=== PATIENT | female | born 1950 | race Hispanic/Latino ===

== ENCOUNTER 2017-01-16 10:48 | Emergency (ER) | payer MEDICAID, OTHER ==
[2017-01-16 10:59] VITALS: BMI 26.0
[2017-01-16 11:17] VITALS: BP 128/76; PULSE 72; RESP 18; TEMP 98.4; O2SAT 97
[2017-01-16] MEDS ORDERED: Oxycodone/Acetaminophen 5/325 mg Tab PO STA (12:06)
--- NOTE | 2017-01-16 12:08 | ED PDOC ---
Upper Extremity Pain/Injury Time Seen by Provider: 01/16/17 11:08 Chief Complaint (Nursing): Finger,Hand,&Wrist Chief Complaint (Provider): Hand Pain History Per: Patient Additional Complaint(s): 66 yo female, no PMH, presents to Ed with complaints of pain and limited ROM to rt thumb x 3 weeks. Pt states pain radiates to rt forearm. pt denies injury. Past Medical History Reviewed: Historical Data, Nursing Documentation, Vital Signs Vital Signs: Last Vital Signs Temp 98.4 F 01/16/17 11:14 Pulse 72 01/16/17 11:14 Resp 18 01/16/17 11:14 BP 128/76 01/16/17 11:14 Pulse Ox 97 01/16/17 11:14 - Medical History PMH: No Chronic Diseases - Surgical History Surgical History: No Surg Hx - Family History Family History: States: No Known Family Hx - Living Arrangements Living Arrangements: With Family - Social History Current smoker - smoking cessation education provided: No Alcohol: Social Drugs: Denies - Home Medications Home Medications: Ambulatory Orders Medication Instructions Recorded Ibuprofen [Motrin] 600 mg PO Q6 #20 tab 01/16/17 - Allergies Allergies/Adverse Reactions: Allergies Allergy/AdvReac Type Severity Reaction Status Date / Time No Known Allergies Allergy Verified 01/16/17 11:14 Review of Systems ROS Statement: Except As Marked, All Systems Reviewed And Found Negative Musculoskeletal: Positive for: Other (thumb pain) Physical Exam - Reviewed Nursing Documentation Reviewed: Yes Vital Signs Reviewed: Yes - Physical Exam Appears: Positive for: Well, Non-toxic, No Acute Distress Head Exam: Positive for: ATRAUMATIC, NORMAL INSPECTION, NORMOCEPHALIC Skin: Positive for: Normal Color, Warm, DRY Eye Exam: Positive for: EOMI, Normal appearance, PERRL ENT: Positive for: Normal ENT Inspection Neck: Positive for: Normal, Painless ROM Cardiovascular/Chest: Positive for: Regular Rate, Rhythm Respiratory: Positive for: CNT, Normal Breath Sounds Gastrointestinal/Abdominal: Positive for: Normal Exam, Bowel Sounds, Soft Back: Positive for: Normal Inspection Extremity: Positive for: Normal ROM, Tenderness (to base of thumb, (+) finklesteins test) Neurologic/Psych: Positive for: Alert, Oriented - ECG O2 Sat by Pulse Oximetry: 97 Medical Decision Making Medical Decision Making: XR: NAD, as read by PABryan Pt placed in thumb spica splint. given hand referral for follow up Disposition - Clinical Impression Clinical Impression: Tendonitis - Disposition Referrals: Aayush Mata MD [Staff Provider] - Ana Kiser [Outside] Disposition: Routine/Home Disposition Time: 12:40 Condition: STABLE Prescriptions: Ibuprofen [Motrin] 600 mg PO Q6 #20 tab Instructions: DeQuervain Release (GEN) Forms: [employer] ([place])
--- NOTE | 2017-01-16 12:38 | RAD ---
PROCEDURE: Right Thumb radiographs. HISTORY: Pain COMPARISON: None. TECHNIQUE: AP radiograph of the right hand, as well as spot oblique and lateral images of thumb were obtained. FINDINGS: RIGHT THUMB: There is no acute fracture or bone destruction. There is diffuse bone demineralization. Bone alignment is normal. JOINTS: Normal. SOFT TISSUES: Normal. OTHER FINDINGS: None. IMPRESSION: No acute fracture or dislocation.
[2017-01-16] MEDS ORDERED: Oxycodone/Acetaminophen 5/325 mg Tab ONE (12:39)
== END 2017-01-16 13:14 | disposition home or self-care (01) ==
LOC: H.ER 10:48
DX: M65.841 Other synovitis and tenosynovitis, right hand (principal)